=== PATIENT | male | born 1970 | race Caucasian/White ===

== ENCOUNTER 2024-07-05 11:51 | Emergency (ER) | payer OTHER ==
[2024-07-05 12:24] VITALS: RESP 18; BMI 31.5
[2024-07-05] MEDS: ACETAMINOPHEN 1000 MG/100 ML BAG IVPB ONE ×2 (12:54→16:06)
[2024-07-05 13:32] LABS: BASO % 0.7 % (0-2.0); EOS % 0.8 % (0-4.5); HEMATOCRIT 41.5 % (35.4-49); HEMOGLOBIN 13.8 GM/dL (11.7-16.9); LYMPH % 16.5 % (8-40); MCHC 33.3 g/dl (32.0-35.9); MEAN CELL VOLUME 84.1 fl (80-96); MEAN PLT VOLUME 6.7 fl (7.5-11.1); MONO % 6.2 % (3.8-10.2); NEUT % 75.8 % (42.8-82.8); PLATELET COUNT 392 10^3/uL (134-434); RBC 4.94 M/mm3 (4.00-5.60); RDW 14.1 % (11.9-15.9); WHITE BLOOD COUNT 10.6 K/mm3 (4.0-10.0)
[2024-07-05 13:33] LABS: PH,URINE 5.5 (5.0-8.0); URINE APPEARANCE CLEAR; URINE BILIRUBIN NEGATIVE (NEGATIVE); URINE COLOR YELLOW; URINE GLUCOSE (UA) NEGATIVE (NEGATIVE); URINE KETONE NEGATIVE (NEGATIVE); URINE LEUK ESTERASE NEGATIVE (NEGATIVE); URINE NITRITE NEGATIVE (NEGATIVE); URINE PROTEIN NEGATIVE (NEGATIVE); URINE UROBILINOGEN 0.2 mg/dL (0.2-1.0)
[2024-07-05 13:38] LABS: INR 1.17 (0.83-1.09); PROTHROMBIN TIME (PATIENT) 13.4 SEC (9.7-13.0)
[2024-07-05 13:41] LABS: ACTIVATED PTT 37.4 SECONDS (25.2-36.5)
[2024-07-05 14:14] LABS: POTASSIUM 4.7 mmol/L (3.5-5.1)
[2024-07-05 14:15] LABS: CALCIUM 9.6 mg/dL (8.5-10.1)
[2024-07-05 14:16] LABS: BLOOD UREA NITROGEN 13.7 mg/dL (7-18)
[2024-07-05 14:19] LABS: ALBUMIN 3.7 g/dl (3.4-5.0); CREATININE 1.3 mg/dL (0.55-1.3)
[2024-07-05 14:21] LABS: BILIRUBIN,TOTAL 0.5 mg/dL (0.2-1); TOT PROT 7.4 g/dl (6.4-8.2)
[2024-07-05 16:06] VITALS: BP 120/78; PULSE 69
== END 2024-07-05 21:02 | disposition home or self-care (01) ==
LOC: JER 11:51
DX: S30.1XXA Contusion of abdominal wall, initial encounter (principal); M79.605 Pain in left leg; V49.40XA Driver injured in collision with unspecified motor vehicles in traffic accident, initial encounter
CPT/HCPCS: 36415; 70450-TC; 71260-TC; 72125-TC; 72131-TC; 73552-TC-LT-FY; 73590-TC-LT-FY; 74177-TC; 80053; 81003; 85025; 85610; 85730; 86850; 86870; 86880; 86900; 86901; 86902; 87086; 93005; 93010; 99285-25